=== PATIENT | female | born 1955 | race Caucasian/White ===

== ENCOUNTER 2022-03-26 04:32 | Emergency (ER) | payer MEDICARE, MEDICAID ==
[~2022-03-26] VITALS: Ht 167.6 cm; Wt 59.0 kg
[2022-03-26] MEDS ORDERED: NO HOME MEDS (06:05)
[2022-03-26 06:14] LABS: BASOPHILS # (AUTO) 0.1 X10'3 (0-0.2); EOSINOPHILS # (AUTO) 0.1 X10'3 (0-0.9); EOSINOPHILS % (AUTO) 1.3 % (0-6); HEMATOCRIT 37.1 % (35.0-45.0); HEMOGLOBIN 12.1 g/dl (12.0-16.0); LYMPHOCYTES # (AUTO) 0.7 X10'3 (1.1-4.8); LYMPHOCYTES % (AUTO) 12.5 % (21-51); MEAN CORPUSCULAR HEMOGLOBIN 29.9 PG (27.0-31.0); MEAN CORPUSCULAR HGB CONC 32.5 g/dL (33.0-36.5); MEAN PLATELET VOLUME 10.7 FL (7.4-10.4); MONOCYTES # (AUTO) 0.4 X10'3 (0-0.9); MONOCYTES % (AUTO) 8.2 % (2-12); PLATELET COUNT 191 X10'3 (140-440); RED BLOOD COUNT 4.03 X10'6 (4.20-5.60); RED CELL DISTRIBUTION WIDTH 13.8 % (11.5-14.5); WHITE BLOOD COUNT 5.2 X10'3 (4.5-11.0)
[2022-03-26 06:41] LABS: ALANINE AMINOTRANSFERASE 20 U/L (12-78); ALBUMIN 3.9 G/DL (3.4-5.0); ALKALINE PHOSPHATASE 115 IU/L (46-116); ANION GAP 9 (8-16); ASPARTATE AMINO TRANSFERASE 24 U/L (10-37); BILIRUBIN,TOTAL 0.1 MG/DL (0.1-1.0); BLOOD UREA NITROGEN 18 MG/DL (7-18); BUN/CREATININE RATIO 15.7 (6.6-38.0); CALCIUM 8.6 MG/DL (8.5-10.1); CHLORIDE 107 MMOL/L (99-107); CREATININE 1.15 MG/DL (0.40-0.90); ETHANOL < 0.010 GM/DL (0.0-0.010); GLUCOSE 101 MG/DL (70-104); SODIUM 139 MMOL/L (135-145); TOTAL CARBON DIOXIDE 22.9 MMOL/L (24-32); TOTAL PROTEIN 7.9 G/DL (6.4-8.2); eGFR 47 ML/MIN
[2022-03-26 06:42] LABS: POTASSIUM 3.7 MMOL/L (3.5-5.1)
[2022-03-26 08:27] LABS: URINE AMPHETAMINE SCREEN NEGATIVE (Neg); URINE BARBITUATE SCREEN NEGATIVE (Neg); URINE BENZODIAZEPINES SCREEN NEGATIVE (Neg); URINE CANNABINOID SCREEN NEGATIVE (Neg); URINE COCAINE SCREEN NEGATIVE (Neg); URINE METHADONE SCREEN NEGATIVE (Neg); URINE OPIATE SCREEN NEGATIVE (Neg); URINE PHENCYCLIDINE SCREEN NEGATIVE (Neg)
[2022-03-26 09:03] LABS: CLARITY,URINE CLOUDY (Clear); COLOR,URINE YELLOW (Yellow); GLUCOSE, URINE NEGATIVE (Neg); KETONES,URINE NEGATIVE (Neg); LEUKOCYTE ESTERASE ,URINE TRACE (Neg); NITRITES, URINE NEGATIVE (Neg); OCCULT BLOOD,URINE NEGATIVE (Neg); PROTEIN,URINE NEGATIVE (Neg); UROBILINOGEN,URINE 0.2 E.U/dL (0.2-1.0)
[2022-03-26 09:07] LABS: UA COLLECTION TYPE VOIDED
[2022-03-26 09:10] LABS: SQUAMOUS EPITHELIAL CELL,UR MODERATE /LPF (FEW)
[2022-03-26 09:11] LABS: BACTERIA,URINE 3+ /HPF (Neg); RBC,URINE 0-2 /HPF (0-2); WBC,URINE 0-4 /HPF (0-4)
--- NOTE | 2022-03-26 11:17 | NUR ---
Received patient into room 22, no s/sx of distress, patient is sitting in bed comfortably reading a book.
--- NOTE | 2022-03-26 13:00 | NUR ---
PATIENT LAYING IN BED COMFORTABLY READING A BOOK.
--- NOTE | 2022-03-26 15:00 | NUR ---
PATIENT CURRENTLY SPEAKING WITH [facility].
--- NOTE | 2022-03-26 15:25 | NUR ---
PATIENT EVALUATED BY [facility], SCORED 11/30 ON THE MOCA TEST. INTERIOR DESIGN FACULTY MEMBER CONSULT ORDERED FOR MEMORY CARE PLACEMENT.
--- NOTE | 2022-03-26 17:00 | NUR ---
PATIENT SLEEPING COMFORTABLY.
--- NOTE | 2022-03-26 19:50 | NUR ---
One to one with the patient to assess severity of confusion and disorientation. The patient presents as very pleasant and calm. She is well groomed. She did have difficulty answering simple questions but did remember she lives in [place] but had difficulty stating what town but then remembered that she lived in [place]. She reports she is divorsed and that she does have a daughter who lives in [place].
--- NOTE | 2022-03-26 22:03 | NUR ---
The patient appears to be sleeping
--- NOTE | 2022-03-26 23:32 | NUR ---
The patient appears to be sleeping
--- NOTE | 2022-03-27 00:32 | NUR ---
THe patient appears to be sleeping
--- NOTE | 2022-03-27 01:52 | NUR ---
The patient appears to be sleeping
--- NOTE | 2022-03-27 03:09 | NUR ---
The patient appears to be sleeping
--- NOTE | 2022-03-27 05:03 | NUR ---
The patient appeared to have slept well throughout the night
--- NOTE | 2022-03-27 07:00 | NUR ---
Patient distressed stating "she came to checkout this facility and she never had any intention of staying here or living here, worried about her car and she needs to walk over pick it up from the hotel" attempted to reorient patient states that memory loss is part of aging and we will one day go through the same and she has a right to go home because she has a perfectly good home in [place]. Patient unable to state place, time or situation believes she is in a "old people home"
--- NOTE | 2022-03-27 09:45 | NUR ---
mental health social worker at bedside with patient.
--- NOTE | 2022-03-27 11:33 | NUR ---
Patient laying bed watching tv, resting comfortably.
--- NOTE | 2022-03-27 18:15 | NUR ---
Assumed care of patient. Sitting up in bed eating dinner tray and watching tv. No needs at this time.
--- NOTE | 2022-03-27 20:15 | NUR ---
Patient resting comfortably in bed. No signs of distress. No needs at this time.
--- NOTE | 2022-03-27 21:00 | NUR ---
Patient reoriented back to room and rule of unit adressed after patient was looking under neighboring patients bed "looking for her shoes". Patient was confused as she thought "her trailer was just down the way" and she was planning on going home. Patient able to be reoriented but was still very obviously confused with nurses explanation.
--- NOTE | 2022-03-27 22:15 | NUR ---
Patient asleep in bed. No signs of distress. No needs at this time.
--- NOTE | 2022-03-28 00:15 | NUR ---
Patient asleep in bed. No signs of distress. No needs at this time.
--- NOTE | 2022-03-28 02:15 | NUR ---
Patient asleep in bed. No signs of distress. No needs at this time.
--- NOTE | 2022-03-28 04:15 | NUR ---
Patient awake, lying in bed quietly. Provided fresh ice water for water pitcher. No other needs at this time. No signs of distress.
--- NOTE | 2022-03-28 06:38 | NUR ---
Assumed care of patient, sitting up in bed talking with neighbor, no needs at this time.
--- NOTE | 2022-03-28 08:00 | NUR ---
patient sitting in bed currently distressed worrying about the location of her car, continues to ask if she can be walked across the street to check on her car.
--- NOTE | 2022-03-28 10:00 | NUR ---
sitting in bed watching tv no needs at this time.
--- NOTE | 2022-03-28 12:30 | NUR ---
sitting in bed eating lunch, no needs at this time.
--- NOTE | 2022-03-28 14:00 | NUR ---
patient in room 23 speaking with patients laughing
--- NOTE | 2022-03-28 16:00 | NUR ---
in bed sleeping comfortably, no needs at this time
--- NOTE | 2022-03-28 19:29 | NUR ---
The patient has been resting on her bed after eating 100% of her dinner. She is very pleasant when approached. She was able to state the year but unable to stated the month. She is eating well. She stated her family has . She gave a number which she thought was to her friend, Natasha Ellis but it went to a voice mail of a male.
--- NOTE | 2022-03-28 21:52 | NUR ---
The patient is writing at the bedside
--- NOTE | 2022-03-28 23:17 | NUR ---
The patient appears to be sleeping
--- NOTE | 2022-03-29 00:07 | NUR ---
The patient appears to be sleeping
--- NOTE | 2022-03-29 02:07 | NUR ---
The patient appears to be sleeping
--- NOTE | 2022-03-29 04:13 | NUR ---
The patient appears to be sleeping
--- NOTE | 2022-03-29 05:09 | NUR ---
THe patient awakened by disruptive peer
--- NOTE | 2022-03-29 08:30 | NUR ---
TC FROM GRADUATE INTERN, REGINA, WHO STATES SHE IS STILL TRYING TO CONTACT CR'S ROOM MATE OR FAMILY MEMBER, WITH NO SUCCESS. REGINA STATES SHE WILL CONTACT APS FOR FURTHER DIRECTION WITH THIS CASE.
--- NOTE | 2022-03-29 10:12 | NUR ---
PATIENT RESTING, WATCHING TV.
--- NOTE | 2022-03-29 11:44 | NUR ---
PATIENT UP OUT OF BED, APPEARS TO BE DOING YOGA/STRETCHING.
--- NOTE | 2022-03-29 12:08 | NUR ---
PT UP AT THE NURSES STATION ASKING WHY SHE IS BEING HELD HERE. PT GAVE NOTECARD WITH PHONE NUMBER ON IT FOR SHI ARRIAZA [phone]. ATTEMPTED TO CALL PHONE NUMBER, BUT NUMBER GOES STRAIGHT TO VOICEMAIL. PT EXPLAINED THAT WE ARE AWAITING GANG INVESTIGATOR TO BE ABLE TO CONTACT FAMILY/ROOMATES FOR SAFE DISPOSITION. PT NOW SITTING BACK IN HER ROOM EATING LUNCH.
--- NOTE | 2022-03-29 13:23 | NUR ---
PT IN HER ROOM, MAKING BED. NO ACUTE DISTRESS.
--- NOTE | 2022-03-29 15:06 | NUR ---
PT SITTING UP IN BED. WRITING ON PIECE OF PAPER. NO ACUTE DISTRESS.
--- NOTE | 2022-03-29 16:10 | NUR ---
PT SITTING UP IN BED, WATCHING TELEVISION. ROOM LIGHTS OFF. PT IN NO ACUTE DISTRESS.
--- NOTE | 2022-03-29 17:24 | NUR ---
PT SITTING UP IN BED WATCHING TELEVISION
--- NOTE | 2022-03-29 19:08 | NUR ---
The patient ate her dinner and then quietly sat on her bed reading and writing notes. She is very pleasant but confused. She is unable to formulate a plan for food, senior care or clothing if she left the hospital. food and nutrition services supervisor is assisting her for discharge planning. She takes care of her ADLs independently.
--- NOTE | 2022-03-29 21:25 | NUR ---
The patient appears to be sleeping
--- NOTE | 2022-03-29 23:02 | NUR ---
The patient appears to be sleeping
--- NOTE | 2022-03-30 01:00 | NUR ---
The patient appears to be sleeping
--- NOTE | 2022-03-30 02:08 | NUR ---
The patient appears to be sleeping
--- NOTE | 2022-03-30 03:33 | NUR ---
The patient up to use the bathroom
--- NOTE | 2022-03-30 04:54 | NUR ---
The patient appears to be sleeping
--- NOTE | 2022-03-30 07:16 | NUR ---
patient asleep.respirations regular.
--- NOTE | 2022-03-30 08:14 | NUR ---
Patient eating breakfast,denies SI, reports she did not plan on staying here. Patient calm and cooperative with RN.
--- NOTE | 2022-03-30 11:21 | NUR ---
patient up to the bathroom and back to bed.
--- NOTE | 2022-03-30 12:30 | NUR ---
patient got up and walked towards the blanket warmer looking for her "shoes", redirected her and told her her shoes are probably in the locker.Patient now fixing her bed.
--- NOTE | 2022-03-30 12:30 | NUR ---
patient eating lunch.
--- NOTE | 2022-03-30 12:51 | NUR ---
pt reading magazine.
--- NOTE | 2022-03-30 13:00 | NUR ---
per Aster, patient is plan to be discharge home, friend to pick her up when friend returns from his camping trip on Saturday.
--- NOTE | 2022-03-30 13:30 | NUR ---
patient got up and walked towards one of the exit door,redirected and assisted patient back to her bed.pt cooperative at this time.
--- NOTE | 2022-03-30 13:33 | NUR ---
Pt sitting up in bed, reading a book. Pt is in no acute distress.
--- NOTE | 2022-03-30 14:40 | NUR ---
patient reading a book,we will monitor.
--- NOTE | 2022-03-30 15:52 | NUR ---
Patient awake, reading magazine.
--- NOTE | 2022-03-30 16:09 | NUR ---
patient straightening her bed.
--- NOTE | 2022-03-30 16:14 | NUR ---
patient given face towels to fold to keep her pre occupied.We will monitor.
--- NOTE | 2022-03-30 16:25 | NUR ---
supervisor case loading/JASMYNE paged made aware that patient has periods of confusion-attempted towards exit door twice.
--- NOTE | 2022-03-30 17:30 | NUR ---
patient at the station talking to staff.
--- NOTE | 2022-03-30 18:44 | NUR ---
PT READING BOOK AT THIS TIME.NO DISTRESS NOTED ,WILL CONT TO MONITOR.
--- NOTE | 2022-03-30 18:51 | NUR ---
PT GOT UP FROM BED AND WAS ABOUT TO EXIT ASKED WHERE SHE IS HEADING TO PER PT "I AM GOING TO MY CAR ".REDIRECTED THE PT AND PT WENT BACK TO HER BED STARTED READING BOOK AGAIN.
--- NOTE | 2022-03-30 20:36 | NUR ---
PT SLEEPING ON HER RGT LATERAL SIDE,RR WNL ,NO DISTRESS NOTED.WILL CONT TO MONITOR .OVERFLOW TECH IS KEEPING CLOSE EYES ON THE PT.
--- NOTE | 2022-03-30 21:13 | NUR ---
PT SLEEPING AT THIS TIME ,RR WNL.WILL CONT TO MONITOR.
--- NOTE | 2022-03-30 23:00 | NUR ---
Pt up to use the restroom
--- NOTE | 2022-03-31 02:05 | NUR ---
Pt asleep on L side RR16
--- NOTE | 2022-03-31 05:28 | NUR ---
Pt resting in bed quietly
--- NOTE | 2022-03-31 05:29 | NUR ---
Pt asleep respirations WNL
--- NOTE | 2022-03-31 07:00 | NUR ---
Received Pt in bed resting and in no distress at this time.
--- NOTE | 2022-03-31 09:00 | NUR ---
Pt woke and ate breakfast. Pleasant and smiling. Pt believes friends will pick her up soon.
--- NOTE | 2022-03-31 11:00 | NUR ---
Pt ta;lking with another Pt and laughing at times. Pt used phone.
--- NOTE | 2022-03-31 12:00 | NUR ---
Pt talked about her name being and her daughter living there. Pt currently eating lunch. Pt reports no complaints.
--- NOTE | 2022-03-31 16:00 | NUR ---
Pt in bed drinking tea with a smile and reading.
--- NOTE | 2022-03-31 17:48 | NUR ---
Pt in bed in euthymic mood eating dinner.
--- NOTE | 2022-03-31 19:30 | NUR ---
The patient is pleasantly confused
--- NOTE | 2022-03-31 21:10 | NUR ---
The patient is up at the station and stating "I'm ready to go" She stated that she believes she is here to make patient's feel better. She does not remember the circumstances of how she came to be in the ER. She was assured that social work was trying to help her to get back to her home and friends and family.
--- NOTE | 2022-03-31 21:18 | NUR ---
Patient's friend, Joe Holt [phone]
--- NOTE | 2022-03-31 23:39 | NUR ---
The patient appears to be sleeping
--- NOTE | 2022-04-01 01:19 | NUR ---
The patient appears to be sleeping
--- NOTE | 2022-04-01 03:52 | NUR ---
THe patient appears to be sleeping
--- NOTE | 2022-04-01 05:58 | NUR ---
The patient appeared to have slept well throughout the night
--- NOTE | 2022-04-01 06:45 | NUR ---
Pt is sitting up writing phone numbers on numerous Post it's that are spread across the bedside table. She approached this com writer and stated, "I need to talk with you." Pt shared her story of what was happening prior to her admission and her plans for discharge.
--- NOTE | 2022-04-01 08:46 | NUR ---
Pt ate her breakfast. She is now drinking coffee and looking out into the room.
--- NOTE | 2022-04-01 10:29 | NUR ---
Pt has been sitting up on her bed rearranging papers, folding and refolding them. Pt denies complaints. She is pleasant and cooperative. No Meds and she is not on a hold. Sand Mill Grinder in charge of placement.
--- NOTE | 2022-04-01 11:37 | NUR ---
Pt continues to look at her papers on her bedside and rearrange them.
--- NOTE | 2022-04-01 13:30 | NUR ---
Pt went around and visited all the other patients. She then sat on her bed and looked at a book. She denies complaints. She states, "I am good."
--- NOTE | 2022-04-01 14:47 | NUR ---
Pt on her bed. She appears to be sleeping. RR even and unlabored.
--- NOTE | 2022-04-01 20:00 | NUR ---
The patient has been reading at the bedside. She is friendy and pleasantly confused. She was reminded of the plan for her friend to come get her on Saturday.
--- NOTE | 2022-04-01 22:05 | NUR ---
The patient up and wandering around the unit looking for ways to help people. She is very pleasantly confused.
--- NOTE | 2022-04-01 23:49 | NUR ---
The patient appears to be sleeping
--- NOTE | 2022-04-02 01:55 | NUR ---
The patient appears to be sleeping
--- NOTE | 2022-04-02 03:21 | NUR ---
The patient appears to be sleeping
--- NOTE | 2022-04-02 04:49 | NUR ---
The patient appears to be sleeping
--- NOTE | 2022-04-02 06:58 | NUR ---
The patient appears to be sleeping
--- NOTE | 2022-04-02 08:11 | NUR ---
The patient sitting up and eating her breakfast
--- NOTE | 2022-04-02 08:51 | NUR ---
The patient is awake and reading and writing notes at the bedside
--- NOTE | 2022-04-02 09:58 | NUR ---
The patient has been up on the unit and socializing with staff and peers.
--- NOTE | 2022-04-02 12:13 | NUR ---
The patient sitting on her bed taking notes
--- NOTE | 2022-04-02 14:35 | NUR ---
The patient is resting on her bed writing notes
--- NOTE | 2022-04-02 16:45 | NUR ---
The patient is resting on her bed. She remains friendly, pleasant and confused
--- NOTE | 2022-04-02 17:50 | NUR ---
The patient is quietly resting on her bed waiting for dinner
--- NOTE | 2022-04-02 18:27 | NUR ---
pt sitting in bed eating dinner
--- NOTE | 2022-04-02 19:02 | NUR ---
pt states she is here because she needed to "get out for a little bit, I've been here before." Pt remains pleasantly confused, states she has no needs.
--- NOTE | 2022-04-02 19:22 | NUR ---
PT UP AMBULATED TO THE BATHROOM AND IS MAKING HER BED
--- NOTE | 2022-04-02 20:15 | NUR ---
PT SITTING QUIETLY IN BED. OFFERED TO GIVE ANOTHER PATIENT HER WATER AND ATTEMPTED TO WALK TO OTHER PATIENT SAYING "I LIKE HELPING PEOPLE" PT WAS REDIRECTED.
--- NOTE | 2022-04-02 23:57 | NUR ---
Pt laying in bed appears to be sleeping rr 16, even and unlabored.
--- NOTE | 2022-04-03 02:03 | NUR ---
Pt is laying on her right side appears to be asleep rr even and unlabored
--- NOTE | 2022-04-03 04:24 | NUR ---
Pt appears to be sleeping rr even and unlabored
--- NOTE | 2022-04-03 04:46 | NUR ---
Pt up using the restroom and returned to bed.
--- NOTE | 2022-04-03 05:58 | NUR ---
pt awake sitting in bed reading her paperwork
--- NOTE | 2022-04-03 06:32 | NUR ---
Patient up to nurse's station asking RN to call her frient in [facility]. "I shouldn't be here. I haven't done anything wrong." RN reassured patient. RN will call her friend after 0800 today. Natasha Kapadia,
--- NOTE | 2022-04-03 08:11 | NUR ---
Patient eating breakfast. No distress observed. Continue to monitor.
--- NOTE | 2022-04-03 10:24 | NUR ---
Patient was up and now back to her bed. No distress observed. Continue to monitor.
--- NOTE | 2022-04-03 12:19 | NUR ---
Patient eating lunch. No distress observed. Continue to monitor.
--- NOTE | 2022-04-03 14:10 | NUR ---
Patient talking to staff. No distress observed. Continue to monitor.
--- NOTE | 2022-04-03 18:12 | NUR ---
Patient chatting with neighbor through the curtain. No distress observed
--- NOTE | 2022-04-03 18:30 | NUR ---
Patient sitting up on her bed talking to her neighbor.
--- NOTE | 2022-04-03 19:10 | NUR ---
Patient eating dinneer tray. Denies needs.
--- NOTE | 2022-04-03 21:00 | NUR ---
Pt up using the restroom and returned to bed.
--- NOTE | 2022-04-03 23:00 | NUR ---
The patient appears to be sleeping.
--- NOTE | 2022-04-04 01:00 | NUR ---
The patient appears to be sleeping
--- NOTE | 2022-04-04 03:00 | NUR ---
The patient appears to be sleeping.
--- NOTE | 2022-04-04 05:41 | NUR ---
Patient awake for vitals. Denies needs.
--- NOTE | 2022-04-04 06:25 | NUR ---
Patient sleeping on right side. No distress observed.
--- NOTE | 2022-04-04 08:11 | NUR ---
Patient sitting up and eating breakfast. No distress observed. Continue to monitor.
--- NOTE | 2022-04-04 10:09 | NUR ---
Patient awake in bed. No distress observed. Continue to monitor.
--- NOTE | 2022-04-04 12:06 | NUR ---
Patient reading in bed. No distress observed. Continue to monitor.
--- NOTE | 2022-04-04 14:07 | NUR ---
Pt laying on right side, respirations are even and unlabored, eyes are closed. Pt is in no acute distress.
--- NOTE | 2022-04-04 16:01 | NUR ---
Pt laying supine in bed quietly. No requests at this time.
[2022-04-04] MEDS ORDERED: acetaminophen 325mg tablet PO PRN (17:50)
--- NOTE | 2022-04-04 17:50 | NUR ---
Pt's temperature found to be elevated at 102.9. Order for covid swab, flu swab and acetaminophen obtained. Pt denies any urinary or respiratory symptoms. She denies any pain at this time.
[2022-04-04] MEDS: acetaminophen 325mg tablet PO PRN (17:59)
--- NOTE | 2022-04-04 19:22 | NUR ---
One to one with the patient who remains pleasantly confused. Discussed negative covid and flu tests. Discussed with lab results with Dr. Kumar and UA ordered. Explained to patient how to give a clean catch urine sample.
--- NOTE | 2022-04-04 20:28 | NUR ---
The patient appears to be sleeping
--- NOTE | 2022-04-04 22:48 | NUR ---
The patient appears to be sleeping
--- NOTE | 2022-04-05 00:30 | NUR ---
The patient appears to be sleeping
--- NOTE | 2022-04-05 01:21 | NUR ---
The patient appears to be sleeping
--- NOTE | 2022-04-05 01:46 | NUR ---
The patient awakened after sweating. She was assisted with dry clothing and she is currently afebrile. She was reminded that a urine sample was needed.
[2022-04-05 02:31] LABS: CLARITY,URINE CLOUDY (Clear); COLOR,URINE YELLOW (Yellow); GLUCOSE, URINE NEGATIVE (Neg); KETONES,URINE NEGATIVE (Neg); LEUKOCYTE ESTERASE ,URINE MODERATE (Neg); NITRITES, URINE NEGATIVE (Neg); OCCULT BLOOD,URINE MODERATE (Neg); PH,URINE 6.5 (4.8-8.0); PROTEIN,URINE 100 mg/dl (Neg); UROBILINOGEN,URINE 0.2 E.U/dL (0.2-1.0)
[2022-04-05 02:43] LABS: UA COLLECTION TYPE VOIDED
[2022-04-05 02:45] LABS: BACTERIA,URINE 3+ /HPF (Neg); MUCUS STRANDS FEW /LPF (Neg); SQUAMOUS EPITHELIAL CELL,UR FEW /LPF (FEW); TRANSITIONAL EPI CELLS,URINE FEW /HPF; WBC CLUMPS,URINE MODERATE /HPF (NEGATIVE); WBC,URINE 30-50 /HPF (0-4)
--- NOTE | 2022-04-05 03:06 | NUR ---
UA reviewed by Dr. Pineda and orders received for antibiotics
[2022-04-05] MEDS ORDERED: cephalexin 500mg capsule PO ONE (03:07)
[2022-04-05] MEDS: acetaminophen 325mg tablet PO PRN (03:34)
--- NOTE | 2022-04-05 03:45 | NUR ---
Patient given first dose of Keflex. She was tremulous. Temporal temp 101.9. Tylenol given and patient increasing po fluids. Dr. Pineda made aware. No new orders at this time.
--- NOTE | 2022-04-05 05:15 | NUR ---
The patient is sitting up at her bedside writing notes quietly. She is currently afebrile
--- NOTE | 2022-04-05 06:20 | NUR ---
Patient received sitting in her bed reading a book at change of shift. No s/s of distress or complaints noted at this time. Respirations even, unlabored. Will continue to monitor.
--- NOTE | 2022-04-05 08:30 | NUR ---
Patient was receptive to 1:1 assessment. She is noted eating breakfast in her room at this time. Patient is A&O x1 (to person). She is noted to be tearful and disoriented, reporting to this health underwriter that she "feels like she is in a bad movie". Patient reported that she was following her friend to a hotel room after attending a concert when she decided to date puller and go on a walk. Patient reported that while on a walk, she approached what she thought was a "old folks home" and ended up getting stuck there and unable to leave. Patient referring to this facility as the "old folks home". No s/s of distress or complaints noted at this time.
[2022-04-05 09:05] LABS: BASOPHILS % (AUTO) 0.1 % (0-1); EOSINOPHILS % (AUTO) 0.5 % (0-6); HEMATOCRIT 33.9 % (35.0-45.0); HEMOGLOBIN 11.1 g/dl (12.0-16.0); LYMPHOCYTES # (AUTO) 0.5 X10'3 (1.1-4.8); LYMPHOCYTES % (AUTO) 8.2 % (21-51); MEAN CORPUSCULAR HEMOGLOBIN 30.2 PG (27.0-31.0); MEAN CORPUSCULAR HGB CONC 32.6 g/dL (33.0-36.5); MEAN CORPUSCULAR VOLUME 92.6 FL (78-98); MEAN PLATELET VOLUME 9.8 FL (7.4-10.4); MONOCYTES # (AUTO) 0.4 X10'3 (0-0.9); MONOCYTES % (AUTO) 6.3 % (2-12); NEUTROPHILS # (AUTO) 5.2 X10'3 (1.8-7.7); NEUTROPHILS % (AUTO) 84.9 % (42-75); PLATELET COUNT 136 X10'3 (140-440); RED BLOOD COUNT 3.66 X10'6 (4.20-5.60); RED CELL DISTRIBUTION WIDTH 13.5 % (11.5-14.5); WHITE BLOOD COUNT 6.2 X10'3 (4.5-11.0)
[2022-04-05 09:22] LABS: ALANINE AMINOTRANSFERASE 26 U/L (12-78); ALBUMIN 2.8 G/DL (3.4-5.0); ALBUMIN/GLOBULIN RATIO 0.6 (1.1-1.5); ALKALINE PHOSPHATASE 76 IU/L (46-116); ANION GAP 10 (8-16); ASPARTATE AMINO TRANSFERASE 34 U/L (10-37); BILIRUBIN,TOTAL 0.3 MG/DL (0.1-1.0); BLOOD UREA NITROGEN 22 MG/DL (7-18); BUN/CREATININE RATIO 15.7 (6.6-38.0); CALCIUM 8.9 MG/DL (8.5-10.1); CHLORIDE 102 MMOL/L (99-107); GLUCOSE 137 MG/DL (70-104); SODIUM 136 MMOL/L (135-145); TOTAL CARBON DIOXIDE 24.4 MMOL/L (24-32); TOTAL PROTEIN 7.3 G/DL (6.4-8.2); eGFR 37 ML/MIN
--- NOTE | 2022-04-05 10:25 | NUR ---
Patient observed sleeping in her room at this time. Respirations even, unlabored. Will continue to monitor.
--- NOTE | 2022-04-05 12:30 | NUR ---
Patient observed sitting in her room eating lunch at this time. No s/s of distress or complaints.
--- NOTE | 2022-04-05 14:25 | NUR ---
Patient is observed sitting in her room eating a snack and reading a book. No complaints or changes noted at this time.
[2022-04-05] MEDS ORDERED: CEPH250T PO (14:52)
--- NOTE | 2022-04-05 16:30 | NUR ---
Patient is noted to be social, calm and cooperative. She is observed walking around the unit and talking with staff. No s/s of distress. Will continue to monitor.
[2022-04-05 18:54] VITALS: BP 93/56
[2022-04-05] MEDS ORDERED: cephalexin 500mg capsule PO SCH (20:00)
== END 2022-04-05 18:59 | disposition home or self-care (01) ==
LOC: ER 04:34
DX: F79 Unspecified intellectual disabilities (principal); Z20.822 Contact with and (suspected) exposure to COVID-19
CPT/HCPCS: 36415; 71045; 80053; 80305; 80320; 81001; 82140; 83605; 84145; 85025; 87088; 87502; 87503; 87635; 99285; C9803